=== PATIENT | male | born 1985 | race Caucasian/White ===

== ENCOUNTER 2017-10-13 20:13 | Emergency (ER) | payer BC ==
--- NOTE | 2017-10-13 20:59 | EDM.PDOC ---
ED HPI GENERAL MEDICAL PROBLEM - General Chief Complaint: Genitourinary Problem Stated Complaint: GROIN PAIN Time Seen by Provider: 10/13/17 20:40 Source of Information: Reports: Patient History Limitations: Reports: No Limitations - History of Present Illness INITIAL COMMENTS - FREE TEXT/NARRATIVE: 32-year-old male who has a history of a left varicocele repair had been doing well but over the past couple of days he's had increased pain, he was driving through [place] and was very uncomfortable so stopped to have it checked. He also feels he has swelling around the testicle but no dysuria, fever, nausea or vomiting. He does have some pain that radiates up into the left lower quadrant of the abdomen. Onset: Gradual (Over the past several days) Severity: Mild Associated Symptoms: Reports: No Other Symptoms Groin Pain Score (Numeric/FACES): 5 - Related Data Allergies Allergy/AdvReac Type Severity Reaction Status Date / Time seasonal allergies Allergy Hives Uncoded 10/13/17 20:36 Home Meds: Home Meds NK [No Known Home Meds] 10/13/17 [History] Past Medical History Musculoskeletal History: Reports: Fracture, Other (See Below) Other Musculoskeletal History: Left wrist fracture Neurological History: Reports: Migraines Psychiatric History: Reports: ADHD, Bipolar - Infectious Disease History Infectious Disease History: Reports: Chicken Pox - Past Surgical History Male Surgical History: Reports: Varicocele Resection, Other (See Below) Other Male Surgeries/Procedures: 2016 Social & Family History - Tobacco Use Smoking Status *Q: Current Every Day Smoker Years of Tobacco use: 20 Packs/Tins Daily: 0.2 - Caffeine Use Caffeine Use: Reports: Coffee - Recreational Drug Use Recreational Drug Use: Yes Drug Use in Last 12 Months: Yes Recreational Drug Type: Reports: Marijuana/Hashish Recreational Drug Use Frequency: Weekly ED ROS GENERAL - Review of Systems Review Of Systems: See Below Constitutional: Denies: Fever, Chills, Malaise HEENT: Reports: No Symptoms Respiratory: Denies: Shortness of Breath Cardiovascular: Denies: Chest Pain GI/Abdominal: Denies: Abdominal Pain, Nausea, Vomiting : Denies: Dysuria, Flank Pain, Frequency Skin: Reports: No Symptoms Neurological: Reports: No Symptoms ED EXAM, RENAL/ - Physical Exam Exam: See Below Exam Limited By: No Limitations General Appearance: Alert, No Apparent Distress Respiratory/Chest: No Respiratory Distress GI/Abdominal: Non-Tender (Male) Exam: No Hernia, Testicular Tenderness (L), Other (Patient has fullness and tenderness of the left epididymis) Course - Vital Signs Last Recorded V/S: Last Vital Signs Temp 98 F 10/13/17 20:42 Pulse 86 10/13/17 20:42 Resp 16 10/13/17 20:42 BP 149/98 H 10/13/17 20:42 Pulse Ox 99 10/13/17 20:42 - Re-Assessments/Exams Free Text/Narrative Re-Assessment/Exam: 10/13/17 20:57 This may be a recurrence of his varicocele but is also acting similar to epididymitis. It does not appear to be torsion or hernia. I'm going to place the patient on Cipro 500 mg twice daily for 5 days, encouraged him to continue with anti-inflammatories and recheck in 3-4 days if not improving satisfactorily. He can return sooner if worsening despite the antibiotic. Departure - Departure Time of Disposition: 21:07 Disposition: Home, Self-Care 01 Condition: Good Clinical Impression: Epididymitis, left - Discharge Information Instructions: Epididymitis Referrals: PCP,None [Primary Care Provider] - Forms: ED Department Discharge Care Plan Goals: Continue with ibuprofen and take ciprofloxacin 500 mg twice daily for 5 full days. Consider rechecking in 3-4 days if not improving satisfactorily, or return if worsening despite treatment.
== END 2017-10-13 21:07 | disposition home or self-care (01) ==
LOC: JP.ED 20:13
DX: N45.1 Epididymitis (principal); F17.210 Nicotine dependence, cigarettes, uncomplicated
CPT/HCPCS: 99283